=== PATIENT | female | born 1960 | race African-American/Black ===

== ENCOUNTER 2017-02-27 18:26 | Emergency (ER) | payer OTHER, MEDICAID ==
[~2017-02-27] VITALS: Ht 182.9 cm; Wt 100.0 kg
[~2017-02-27 18:26] MED LIST: ATENOLOL; DIVAL250 PO; DOXYCYCLINE; FAMOTIDINE
[2017-02-27 18:39] VITALS: BP 124/86
== END 2017-02-27 18:46 | disposition left against medical advice (07) ==
LOC: ER 18:26
DX: Z04.8 Encounter for examination and observation for other specified reasons (principal); Z53.21 Procedure and treatment not carried out due to patient leaving prior to being seen by health care provider

== ENCOUNTER 2017-03-14 12:11 | Emergency (ER) | payer OTHER, MEDICAID ==
[~2017-03-14] VITALS: Ht 182.9 cm; Wt 90.0 kg
[2017-03-14] MEDS ORDERED: FOLIC ACID 1 MG, THIAMINE HCL 100 MG, MVI, ADULT NO.1 10 ML in DEXTROSE 5% WATER 1,000 ML IV ONE ×4 (12:45)
[2017-03-14 13:11] LABS: HEMATOCRIT. 37.8 % (36.0-48.0); MEAN CORPUSCULAR HEMOGLOBIN 33.7 pg (28.0-32.0); MEAN CORPUSCULAR HGB CONC 34.3 g/dL (31.0-37.0); MEAN CORPUSCULAR VOLUME 98.4 fL (81.0-99.0); MEAN PLATELET VOLUME 8.3 fl (7.4-10.4); PLATELET 234 x1000/uL (130-400); RED BLOOD CELL COUNT 3.84 mill/uL (4.2-5.4); RED CELL DISTRIBUTION WIDTH 15.6 % (11.6-14.6); WHITE BLOOD COUNT 5.4 x1000/uL (4.5-11.0)
[2017-03-14 13:13] LABS: DIFFERENTIAL COMMENT 1
[2017-03-14 13:18] LABS: CHLORIDE 106 mEq/L (98-107); INDEX HEMOLYSI 1 (1-3); INDEX ICTERIC 1 (1-4); INDEX LIPEMIC 1 (1-3)
[2017-03-14 13:23] LABS: ANION GAP 13; CALCIUM 8.7 mg/dL (8.5-10.1); CARBON DIOXIDE 28 mEq/L (21-32); UREA NITROGEN BLOOD 15 mg/dL (7-21)
[2017-03-14 13:31] LABS: ACETAMINOPHEN < 2 ug/mL (10-30); VALPROIC ACID 39.1 ug/mL (50-100); eGFR > 60 mL/min (>60)
[2017-03-14 13:34] LABS: ETHANOL BLOOD 362 mg/dL
[2017-03-14 13:53] LABS: PLATELET ESTIMATE NORMAL
[2017-03-14 14:42] VITALS: BP 121/70
[2017-03-14 15:56] LABS: CLARITY URINE CLEAR (CLEAR); COLOR URINE YELLOW (YELLOW); GLUCOSE URINE NEGATIVE (NEGATIVE); KETONES URINE NEGATIVE (NEGATIVE); LEUKOCYTE ESTERASE URINE 2+ (NEGATIVE); NITRITE URINE NEGATIVE (NEGATIVE); OCCULT BLOOD URINE NEGATIVE (NEGATIVE); PH URINE 6.5 (4.5-8.0); PROTEIN URINE NEGATIVE (NEGATIVE); SPECIFIC GRAVITY URINE 1.009 (1.005-1.030); UROBILINOGEN URINE 0.2 E.U./dL (0.2-1.0)
[2017-03-14 16:35] LABS: BACTERIA URINE 1+; RBC URINE NONE SEEN /hpf (0-2); SQUAMOUS EPITHELIAL CELL URINE FEW /lpf (RARE/1+)
[2017-03-14 16:52] LABS: *AMPHETAMINES SCREEN URINE NEGATIVE (NEGATIVE); *BARBITURATES SCREEN URINE NEGATIVE (NEGATIVE); *BENZODIAZEPINES SCREEN URINE NEGATIVE (NEGATIVE); *COCAINE SCREEN URINE NEGATIVE (NEGATIVE); CANNABINOID URINE SCREEN NEGATIVE (NEGATIVE); ECSTASY MDMA SCREEN URINE NEGATIVE (NEGATIVE); METHADONE URINE SCREEN NEGATIVE (NEGATIVE); OPIATES URINE SCREEN NEGATIVE (NEGATIVE); PHENCYCLIDINE URINE SCREEN NEGATIVE (NEGATIVE)
== END 2017-03-14 16:46 | disposition home or self-care (01) ==
LOC: ER 12:18
DX: F10.129 Alcohol abuse with intoxication, unspecified (principal); N39.0 Urinary tract infection, site not specified; K02.9 Dental caries, unspecified; I10 Essential (primary) hypertension; F31.9 Bipolar disorder, unspecified; F12.10 Cannabis abuse, uncomplicated; Z88.0 Allergy status to penicillin
CPT/HCPCS: 36415; 80048; 80165; 80305; 80307; 80329; 81001; 85025; 96365; 99284; G0482; J3411; J3490; J7070

== ENCOUNTER 2017-03-21 14:03 | Emergency (ER) | payer OTHER, MEDICAID ==
[~2017-03-21] VITALS: Ht 162.6 cm; Wt 70.0 kg
[2017-03-21 14:07] VITALS: BP 124/78
== END 2017-03-21 16:57 | disposition left against medical advice (07) ==
LOC: ER 14:48
DX: R53.1 Weakness (principal); R42 Dizziness and giddiness; F31.9 Bipolar disorder, unspecified; I10 Essential (primary) hypertension; F12.10 Cannabis abuse, uncomplicated; Z88.0 Allergy status to penicillin

== ENCOUNTER 2017-03-27 19:37 | Emergency (ER) | payer OTHER, MEDICAID ==
[~2017-03-27] VITALS: Ht 182.9 cm; Wt 99.0 kg
[2017-03-27 19:46] VITALS: BP 130/83
== END 2017-03-27 22:50 | disposition left against medical advice (07) ==
LOC: ER 19:52
DX: R05 Cough (principal); Z53.21 Procedure and treatment not carried out due to patient leaving prior to being seen by health care provider

== ENCOUNTER 2021-03-04 22:25 | Emergency (ER) | payer OTHER, MEDICAID ==
[~2021-03-04] VITALS: Ht 167.6 cm; Wt 122.9 kg
[2021-03-04] MEDS ORDERED: CLINDAMYCIN 600 MG in DEXTROSE 5% WATER 50 ML IV ONE (22:45)
[2021-03-04 23:29] LABS: BASOPHILS % 0.5 % (0.0-2.0); EOSINOPHILS % 0.1 % (0.0-5.0); HEMATOCRIT. 35.6 % (36.0-48.0); HEMOGLOBIN. 12.1 g/dL (12.0-16.0); LYMPHOCYTES % 21.8 % (20.0-50.0); MEAN CORPUSCULAR VOLUME 111.5 fL (81.0-99.0); MEAN PLATELET VOLUME 8.8 fl (7.4-10.4); MONOCYTES % 7.1 % (2.0-8.0); NEUTROPHILS % 70.5 % (40.0-76.0); PLATELET 201 x1000/uL (130-400); RED BLOOD CELL COUNT 3.19 mill/uL (4.2-5.4); RED CELL DISTRIBUTION WIDTH 15.5 % (11.6-14.6)
[2021-03-04] MEDS ORDERED: CLINDAMYCIN 600MG PREMIX 50 ML IV NR (23:30)
[2021-03-04] MEDS ORDERED: CLINDAMYCIN 600 MG in DEXTROSE 5% WATER 50 ML IV NR (23:30)
[2021-03-04 23:37] LABS: CHLORIDE 103 mEq/L (98-107)
[2021-03-04 23:38] LABS: PARTIAL THROMBOPLASTIN TIME 27.7 sec (23.4-31.0); PROTHROMBIN TIME 11.1 sec (9.6-11.0)
[2021-03-04 23:42] LABS: ETHANOL BLOOD 60 mg/dL
[2021-03-04 23:44] LABS: LDL CHOLESTEROL 56 mg/dL (5-100)
[2021-03-05 00:01] LABS: PLATELET ESTIMATE NORMAL
[2021-03-05] MEDS ORDERED: ASPIRIN 325MG EC TABLET PO ONE (01:30)
[2021-03-05 03:33] VITALS: BP 165/93
== END 2021-03-05 03:43 | disposition short-term general hospital (02) ==
LOC: ER 22:25 → CANBEDREQ 03-05 01:32 → ER 03-05 03:43
DX: R29.810 Facial weakness (principal); R41.82 Altered mental status, unspecified; R65.20 Severe sepsis without septic shock; L03.113 Cellulitis of right upper limb; J45.909 Unspecified asthma, uncomplicated; E78.00 Pure hypercholesterolemia, unspecified; R62.7 Adult failure to thrive; I10 Essential (primary) hypertension; Z88.0 Allergy status to penicillin
CPT/HCPCS: 36415; 70450; 70496; 70498; 71045; 80053; 80320; 82962; 83605; 83721; 84484; 85025; 85610; 85730; 86850; 86900; 86901; 87040; 93005; 96365; 99291; J3490; J7060; G0480